=== PATIENT | female | born 1945 | race Caucasian/White ===

== ENCOUNTER 2019-12-13 17:21 | Inpatient (IN) | payer MEDICARE, SELFPAY ==
[2019-12-15 04:53] VITALS: BMI 17.5
[2019-12-16] VITALS: BP 133/75; PULSE 92; RESP 16; TEMP 37.1; O2SAT 98
[2019-12-16 04:00] VITALS: BP 149/92; PULSE 92; RESP 18; TEMP 37.2; O2SAT 92
[2019-12-16] MEDS: KCl 20 mEq in 5% Dex/0.45% Sod 20 MEQ/1,000 ML IV.SOLN 100 MEQ IVCONT (04:20)
[2019-12-16 08:00] VITALS: BP 149/82; PULSE 91; RESP 19; TEMP 36.2; O2SAT 98
[2019-12-16 10:29] LABS: Vancomycin Trough < 3.0 mcg/mL (10.0-20.0)
[2019-12-16] MEDS: vancomycin HCL 500 MG in 0.9 % Sodium Chloride 100 ML 110 MG IV ×2 (10:59→23:54)
[2019-12-16] MEDS: Heparin Sodium,Porcine 5,000 UNIT/ML VIAL 5000 UNIT SUBCUT ×2 (11:02→23:58)
[2019-12-16 12:01] VITALS: BP 147/76; PULSE 99; RESP 19; TEMP 36.3; O2SAT 97
--- NOTE | 2019-12-16 12:19 | PM.IMPN ---
Subjective Subjective Date of Service: 12/16/19 Interval History: not talking Review of Systems Review of Systems: Yes Other (unable to review) Physical Exam Vital Signs and I&O and Narrative: Vital Signs and I&O: Vital Signs Temp 97.4 F 12/16/19 12:01 Pulse 99 12/16/19 12:01 Resp 19 12/16/19 12:01 BP 147/76 H 12/16/19 12:01 Pulse Ox 97 12/16/19 12:01 Intake & Output 12/15/19 12/16/19 12/16/19 18:59 06:59 18:59 Intake Total 100 / 100 885 / 885 Balance 100 / 100 885 / 885 Intake: Intake, Oral Shanon unt 100 / 100 Intake, IV Amoun t 885 / 885 vancomycin HCL 500 mg In 0.9 % 110 / 110 Sodium Chlorid e 100 ml @ 110 mls/hr IV Q24H [facility] Rx#: [id number] KCl 20 mEq in 5% Dex/0.45% Sod 775 / 775 20 meq In 1,00 0 ml @ 10 mls/hr IVCONT .Q24H S [facility] Rx#:[id number] Other: Urine Color Tea Body Mass Index 17.5 Const: General: comfortable Resp: Effort & Inspection: normal respiratory effort Cardio: Heart sounds: S1 normal heart sound present and S2 normal heart sound present Skin: Nails: other ( deep an extensive ulceration of the coccyx) Objective Data Current Medications Generic Name Dose Route Start Last Admin Trade Name Freq PRN Reason Stop Dose Admin Acetaminophen 650 mg 12/16/19 00:01 Acetaminophen 325 Mg Tablet PO Q6H PRN FEVER/PAIN,MILD (SCALE 1-3) Heparin Sodium (Porcine) 5,000 unit 12/16/19 11:00 12/16/19 11:02 Heparin Sodium,Porcine 5,000 Unit/Ml Vial SUBCUT 5,000 unit Q12H [facility] Administration Vancomycin HCl 500 mg/ Sodium 110 mls @ 110 mls/hr 12/16/19 09:00 12/16/19 12:04 Chloride IV Infused Q24H [facility] Infusion Cefepime HCl 1 gm/ Sodium 50 mls @ 100 mls/hr 12/16/19 17:00 Chloride IV Q24H [facility] Potassium Chloride/Dextrose/Sod Cl 20 meq in 1,000 mls @ 10 mls/hr 12/16/19 01:00 12/16/19 12:05 IVCONT 0 mls/hr .Q24H [facility] Infusion Morphine Sulfate 1 mg 12/16/19 00:01 Morphine Sulfate 2 Mg/Ml Cartridge IVPUSH Q4H PRN COMFORT Sodium Chloride 2 ml 12/16/19 00:01 12/16/19 11:02 0.9 % Sodium Chloride Flush 3 Ml Syringe IVFLUSH Not Given QSHIFT [facility] Labs CBC & Chem 7: 12/15/19 06:16 12/15/19 06:16 Labs: Laboratory Results - last 24 hr 12/13/19 12/13/19 12/13/19 10:38 10:58 10:58 MCV MCH MCHC RDW Coeff of Ivory Plt Count MPV Absolute Nucleated RBC Nucleated RBC % (auto) Band Neutrophils % Lymphocytes % Platelet Estimate RBC Morphology Hold Blue Top Bicarbonate 23 Anion Gap 20 Estimated Creat Clear 25.0 Est GFR (Non-Af Amer) 43 POC Glucose 297 H Random Glucose 336 H D Fasting Glucose Lactic Acid Calcium Magnesium 1.7 Ferritin 630 H Total Bilirubin 0.3 Direct Bilirubin < 0.2 AST 10 ALT 12 Alkaline Phosphatase 95 D Ammonia 33 Lactate Dehydrogenase 222 H Troponin I High Sens C-Reactive Protein 9.64 H B-Natriuretic Peptide Total Protein 7.4 Albumin 3.2 L Procalcitonin Urine Color Urine Appearance Urine pH Ur Specific [place] Urine Protein Urine Glucose (UA) Urine Ketones Urine Blood Urine Nitrite Urine WBC (Auto) Vancomycin Trough Urine Opiates Screen Ur Barbiturates Screen Phencyclidine Screen Ur Amphetamines Screen U Benzodiazepines Scrn Urine Cocaine Screen U Cannabinoids Screen Ethyl Alcohol Acetone, Qual NEGATIVE Coronavirus (PCR) 12/13/19 12/13/19 12/13/19 10:58 10:58 10:58 MCV 91.1 MCH 28.0 MCHC 30.7 L RDW Coeff of Ivory 14.5 Plt Count 249 D MPV 10.3 Absolute Nucleated RBC 0.000 Nucleated RBC % (auto) 0.0 Band Neutrophils % 6 H Lymphocytes % 6 L Platelet Estimate NORMAL RBC Morphology NORMAL Hold Blue Top Bicarbonate Anion Gap Estimated Creat Clear Est GFR (Non-Af Amer) POC Glucose Random Glucose Fasting Glucose Lactic Acid 6.8 H* Calcium Magnesium Ferritin Total Bilirubin Direct Bilirubin AST ALT Alkaline Phosphatase Ammonia Lactate Dehydrogenase Troponin I High Sens C-Reactive Protein B-Natriuretic Peptide Total Protein Albumin Procalcitonin Urine Color Urine Appearance Urine pH Ur Specific [place] Urine Protein Urine Glucose (UA) Urine Ketones Urine Blood Urine Nitrite Urine WBC (Auto) Vancomycin Trough Urine Opiates Screen Ur Barbiturates Screen Phencyclidine Screen Ur Amphetamines Screen U Benzodiazepines Scrn Urine Cocaine Screen U Cannabinoids Screen Ethyl Alcohol Cancelled Acetone, Qual Coronavirus (PCR) 12/13/19 12/13/19 12/13/19 10:58 10:58 10:58 MCV MCH MCHC RDW Coeff of Ivory Plt Count MPV Absolute Nucleated RBC Nucleated RBC % (auto) Band Neutrophils % Lymphocytes % Platelet Estimate RBC Morphology Hold Blue Top SEE NOTE Bicarbonate Anion Gap Estimated Creat Clear Est GFR (Non-Af Amer) POC Glucose Random Glucose Fasting Glucose Lactic Acid Calcium Magnesium Ferritin Total Bilirubin Direct Bilirubin AST ALT Alkaline Phosphatase Ammonia Lactate Dehydrogenase Troponin I High Sens C-Reactive Protein B-Natriuretic Peptide Total Protein Albumin Procalcitonin Urine Color YELLOW Urine Appearance CLEAR Urine pH 5.5 Ur Specific [place] 1.025 Urine Protein TRACE Urine Glucose (UA) 500 H Urine Ketones 5 Urine Blood NEG Urine Nitrite NEG Urine WBC (Auto) NEG Vancomycin Trough Urine Opiates Screen NOT DETECTED Ur Barbiturates Screen NOT DETECTED Phencyclidine Screen NOT DETECTED Ur Amphetamines Screen NOT DETECTED U Benzodiazepines Scrn NOT DETECTED Urine Cocaine Screen NOT DETECTED U Cannabinoids Screen NOT DETECTED Ethyl Alcohol Acetone, Qual Coronavirus (PCR) 12/13/19 12/13/19 12/13/19 10:58 11:32 12:21 MCV MCH MCHC RDW Coeff of Ivory Plt Count MPV Absolute Nucleated RBC Nucleated RBC % (auto) Band Neutrophils % Lymphocytes % Platelet Estimate RBC Morphology Hold Blue Top Bicarbonate Anion Gap Estimated Creat Clear Est GFR (Non-Af Amer) POC Glucose Random Glucose Fasting Glucose Lactic Acid Cancelled Calcium Magnesium Ferritin Total Bilirubin Direct Bilirubin AST ALT Alkaline Phosphatase Ammonia Lactate Dehydrogenase Troponin I High Sens 27.0 H D C-Reactive Protein B-Natriuretic Peptide 40 Total Protein Albumin Procalcitonin 0.89 Urine Color Urine Appearance Urine pH Ur Specific [place] Urine Protein Urine Glucose (UA) Urine Ketones Urine Blood Urine Nitrite Urine WBC (Auto) Vancomycin Trough Urine Opiates Screen Ur Barbiturates Screen Phencyclidine Screen Ur Amphetamines Screen U Benzodiazepines Scrn Urine Cocaine Screen U Cannabinoids Screen Ethyl Alcohol Acetone, Qual Coronavirus (PCR) 12/13/19 12/13/19 12/13/19 12:24 13:24 13:24 MCV MCH MCHC RDW Coeff of Ivory Plt Count MPV Absolute Nucleated RBC Nucleated RBC % (auto) Band Neutrophils % Lymphocytes % Platelet Estimate RBC Morphology Hold Blue Top Bicarbonate Anion Gap Estimated Creat Clear Est GFR (Non-Af Amer) POC Glucose Random Glucose Fasting Glucose Lactic Acid 4.2 H* Calcium Magnesium Ferritin Total Bilirubin Direct Bilirubin AST ALT Alkaline Phosphatase Ammonia Lactate Dehydrogenase Troponin I High Sens 24.6 H C-Reactive Protein B-Natriuretic Peptide Total Protein Albumin Procalcitonin Urine Color Urine Appearance Urine pH Ur Specific [place] Urine Protein Urine Glucose (UA) Urine Ketones Urine Blood Urine Nitrite Urine WBC (Auto) Vancomycin Trough Urine Opiates Screen Ur Barbiturates Screen Phencyclidine Screen Ur Amphetamines Screen U Benzodiazepines Scrn Urine Cocaine Screen U Cannabinoids Screen Ethyl Alcohol Acetone, Qual Coronavirus (PCR) Not Detected 12/13/19 12/14/19 12/15/19 15:48 18:04 06:16 MCV MCH MCHC RDW Coeff of Ivory Plt Count MPV Absolute Nucleated RBC Nucleated RBC % (auto) Band Neutrophils % Lymphocytes % Platelet Estimate RBC Morphology Hold Blue Top Bicarbonate 24 Anion Gap 15 Estimated Creat Clear 59.3 Est GFR (Non-Af Amer) > 60 POC Glucose Random Glucose Fasting Glucose 285 H D Lactic Acid 1.8 Calcium 7.4 L Magnesium Ferritin Total Bilirubin Direct Bilirubin AST ALT Alkaline Phosphatase Ammonia Lactate Dehydrogenase Troponin I High Sens C-Reactive Protein B-Natriuretic Peptide Total Protein Albumin Procalcitonin Urine Color Urine Appearance Urine pH Ur Specific [place] Urine Protein Urine Glucose (UA) Urine Ketones Urine Blood Urine Nitrite Urine WBC (Auto) Vancomycin Trough Urine Opiates Screen Ur Barbiturates Screen Phencyclidine Screen Ur Amphetamines Screen U Benzodiazepines Scrn Urine Cocaine Screen U Cannabinoids Screen Ethyl Alcohol Acetone, Qual Coronavirus (PCR) NEGATIVE 12/15/19 12/16/19 06:16 09:28 MCV 91.2 MCH 29.1 MCHC 31.9 RDW Coeff of Ivory 14.2 Plt Count 192 MPV 11.0 Absolute Nucleated RBC 0.000 Nucleated RBC % (auto) 0.0 Band Neutrophils % Lymphocytes % Platelet Estimate RBC Morphology Hold Blue Top Bicarbonate Anion Gap Estimated Creat Clear Est GFR (Non-Af Amer) POC Glucose Random Glucose Fasting Glucose Lactic Acid Calcium Magnesium Ferritin Total Bilirubin Direct Bilirubin AST ALT Alkaline Phosphatase Ammonia Lactate Dehydrogenase Troponin I High Sens C-Reactive Protein B-Natriuretic Peptide Total Protein Albumin Procalcitonin Urine Color Urine Appearance Urine pH Ur Specific [place] Urine Protein Urine Glucose (UA) Urine Ketones Urine Blood Urine Nitrite Urine WBC (Auto) Vancomycin Trough < 3.0 L Urine Opiates Screen Ur Barbiturates Screen Phencyclidine Screen Ur Amphetamines Screen U Benzodiazepines Scrn Urine Cocaine Screen U Cannabinoids Screen Ethyl Alcohol Acetone, Qual Coronavirus (PCR) Progress Note: A&P (1) Severe sepsis: Status: Acute (2) Decubitus ulcer: Status: Acute (3) Bacteremia: Status: Acute (4) Toxic metabolic encephalopathy: Status: Acute Assessment and Plan: this is a 74-year-old female with advanced dementia who comes from residential facility due to severe sepsis secondary to osteomyelitis of the coccyx 1. severe sepsis / osteo /Bacteremia Continue vancomycin and cefepime Granddaughter reports that she will be discussing with the family, undecided about transition to hospice/TECHNOLOGY SALES REPRESENTATIVE and antibiotics at this time cultures growing Gram-positive cocci in 1 bottle and gram-negative rods in the 2nd, await cultures to become finalized follow renal function and vancomycin trough 2. Toxic/ metabolic encephalopathy Multifactorial including above plus baseline dementia 3.Hypernatremia Check labs this morning Fluids to be adjusted as needed 4. hypokalemia Repleted yesterday, await labs this morning discussed with the granddaughter, healthcare proxy and had telephone today. She is unable to decide whether she wants to transition and hospice or not. She request some time to discuss with other family members. Will follow-up with her
[2019-12-16 13:29] LABS: Anion Gap 13 (12-20); Blood Urea Nitrogen 9 mg/dL (9-16); Calcium 7.5 mg/dL (8.4-10.2); Carbon Dioxide 28 mmol/L (22-29); Chloride 104 mmol/L (96-108); Creatinine Clr Calc Pharmacy 52.2; Estimated Glomerular Filt Rate > 60; Glucose Random 465 mg/dL (60-115); Potassium 3.2 mmol/l (3.3-5.1); Sodium 142 mmol/L (135-145)
[2019-12-16 15:37] VITALS: BP 158/87; PULSE 89; RESP 20; TEMP 36.3; O2SAT 97
[2019-12-16 16:25] LABS: Glucose, Whole Blood 498 mg/dL (60-115)
[2019-12-16] MEDS: cefEPime HCl 1 GM in 0.9 % Sodium Chloride 50 ML IV (17:33)
[2019-12-16] MEDS: Insulin Lispro 100 UNIT/ML 3 ML VIAL SUBCUT (17:35)
[2019-12-16] MEDS: 0.9 % Sodium Chloride Flush 3 ML SYRINGE 2 ML IVFLUSH (17:35)
[2019-12-16 19:34] VITALS: BP 124/66; PULSE 114; RESP 19; TEMP 36.9; O2SAT 98
[2019-12-16 20:43] LABS: Glucose, Whole Blood 287 mg/dL (60-115)
[2019-12-17] VITALS (8 sets, daily range): BP systolic 100–145; BP diastolic 62–84; PULSE 66–114; RESP 16–20; TEMP 35.9–36.9; O2SAT 97–98
[2019-12-17 08:02] LABS: Glucose, Whole Blood 306 mg/dL (60-115)
--- NOTE | 2019-12-17 09:49 | MHC.CM.PN ---
CALL RECEIVED FROM MINH WILKINSON IS CURRENTLY AT A MEETING WITH HOME. PER CONVERSATION, MINH AND FAMILY WANT PATIENT TO REMAIN ON HOSPICE IF THEY CAN VISIT AT [facility]. MINH AWARE THAT THIS STAFF REPORTER WILL ATTEMPT TO GET THE ANSWER, AND CALL BACK AT 13:00 TODAY. PER CONVERSATION WITH [facility], FAMILY CAN BRING FOOD IN DAILY IF THEY LIKE. ALTHOUGH THERE IS A 14 DAY NO VISITOR POLICY, FACILITY IS FLEXIBLE WITH END OF LIFE CARE PATIENTS. INFORMATION WILL BE RELAYED AGAIN TO FAMILY.
[2019-12-17] MEDS: Heparin Sodium,Porcine 5,000 UNIT/ML VIAL 5000 UNIT SUBCUT (10:16)
[2019-12-17] MEDS: Insulin Lispro 100 UNIT/ML 3 ML VIAL SUBCUT ×3 (10:17→17:43)
[2019-12-17] MEDS: Cholecalciferol (Vitamin D3) 25 MCG TABLET PO (10:18)
[2019-12-17] MEDS: Cyanocobalamin (Vitamin B-12) 1,000 MCG TABLET 1000 MCG PO (10:18)
[2019-12-17] MEDS: Escitalopram Oxalate 10 MG TABLET PO (10:18)
--- NOTE | 2019-12-17 11:20 | MHC.CM.PN ---
PLAN IS FOR PATIENT TO RETURN HOME WITH NO SERVICES. RN AWARE OF PLAN.
[2019-12-17 12:02] LABS: Vancomycin Trough 4.5 mcg/mL (10.0-20.0)
[2019-12-17 12:10] LABS: Glucose, Whole Blood 369 mg/dL (60-115)
[2019-12-17 13:24] LABS: Glucose, Whole Blood 409 mg/dL (60-115)
[2019-12-17] MEDS: vancomycin HCL 500 MG in 0.9 % Sodium Chloride 100 ML 100 MG IV (13:30)
--- NOTE | 2019-12-17 13:36 | PM.CNGS ---
History of Present Illness Consult details Consult date: 12/17/19 Requesting physician: Jacinto Martin Narrative: 74-year-old female with diabetes hypertension and events dementia admitted to the hospital on December 13, 2019 for altered mental status. [facility] of 2019 because of worsening dementia. Most of the history is from the sister at bedside. Patient was noted to have onset of memory loss starting February of 2019. This slowly progressed and she was therefore transferred to the penitentiary starting September. She had progressive worsening of her dementia. She was admitted for a week for urinary tract infection in October 2019. Since then, her overall have has been worsening. She seems to have been mostly bedbound for the past few weeks. She was noted to have a small sacral ulcer in October but this has worsened over this past several weeks. When she was brought to the ED does December 12, she was noted to be septic. She had a large necrotic sacral decubitus ulcer and her CAT scan showed osteomyelitis of the coccyx as well as the S5. Her healthcare proxy, the granddaughter, had stated that she is not to have any surgical procedures including debridement. There has been worsening of the ulcers since she has been in the hospital with foul smell. I was therefore consulted. Review of Systems Review of Systems: Yes Unobtainable due to mental condition PMFSH Past Medical History Medical History Dementia Diabetes mellitus GERD with apnea Hypertension Cognitive capacity: patient has advanced dementia, bedbound Social History Social History Advance Directives: No Advance Directives Information Provided: No service: No Current occupational status: unemployed Meds Allergies Allergy/AdvReac Type Severity Reaction Status Date / Time No Known Allergies Allergy Verified 12/15/19 04:57 Home Medications Medication Instructions Recorded Confirmed Type acetaminophen 650 mg PO Q6H PRN 12/15/19 12/15/19 History [id number] 1 ea PO TID 12/15/19 12/15/19 History [Alfredo (with collagen)] cholecalciferol (vitamin D3) 25 mcg PO DAILY 12/15/19 12/15/19 History cyanocobalamin (vitamin B-12) 1,000 mcg PO DAILY 12/15/19 12/15/19 History dulaglutide 0.75 mg SUBCUT WE@89912/15/19 12/15/19 History escitalopram oxalate 10 mg PO DAILY 12/15/19 12/15/19 History insulin lispro 1 sliding scale dose SUBCUT TIDAC 12/15/19 12/15/19 History metformin 1,000 mg PO BID 12/15/19 12/15/19 History nut.tx.gluc.intol,lac-free,soy 237 PO TID 12/15/19 History [Glucerna] omeprazole magnesium 20 mg PO DAILY@0630 12/15/19 12/15/19 History oxycodone 2.5 mg PO Q4H PRN 12/15/19 12/15/19 History Physical Exam Vital Signs and I&O and Narrative: Vital Signs and I&O: Vital Signs Temp 97.9 F 12/17/19 12:00 Pulse 114 H 12/17/19 12:00 Resp 19 12/17/19 12:00 BP 123/62 12/17/19 12:00 Pulse Ox 97 12/17/19 12:00 Intake & Output 12/16/19 12/17/19 12/17/19 18:59 06:59 18:59 Intake Total 1005 / 1165 160 / 1165 Output Total 500 / 700 200 / 700 Balance 505 / 465 -40 / 465 Urine Output (Aver age ml/kg/hr) 1.06 0.42 0.42 Intake: Intake, Oral [place] unt 120 / 120 0 / 120 Intake, Oral Sup plement Amount 0 / 0 Intake, Tube Fee ding Amount 0 / 0 Intake, IV Amoun t 885 / 1045 160 / 1045 cefEPime HCl 1 gm In 0.9 % 50 / 50 Sodium Chlorid e 50 ml @ 100 mls /hr IV Q24H SC H Rx#:[id number] vancomycin HCL 500 mg In 0.9 % 110 / 220 110 / 220 Sodium Chlorid e 100 ml @ 110 mls/hr IV Q12H [facility] Rx#: [id number] KCl 20 mEq in 5% Dex/0.45% Sod 775 / 775 0 / 775 20 meq In 1,00 0 ml @ 10 mls/hr IVCONT .Q24H S [facility] Rx#:[id number] Output: Output, Urine Am ount 500 / 700 200 / 700 Other: Meal Refused No Yes Yes NPO No No Breakfast % Eate n 25% 25% Lunch % Eaten 25% Dinner % Eaten 0% Number of Incont inent Voids 2 Number of Incont inent Bowel 1 Movements Urine pure wick Urine Color Yellow Stool inc. Stool Color Dark Brown Stool Consistenc y Formed Body Mass Index 17.5 Const: Other: bedbound, not communicative, the cachectic, no verbal output Resp: Effort & Inspection: decreased respiratory effort Cardio: Rate: tachycardic GI: Palpation (GI): Soft to palpation Back/Spine/Pelvis: Other: large sacral decubitus ulcer, about 7.5 cm across by 7 cm, with necrotic areas, significant undermining, foul-smelling discharge, tenderness to touch Results Labs Result diagrams: 12/15/19 06:16 12/16/19 12:44 Labs: Abnormal lab results 12/16/19 12/16/19 12/17/19 Range/Units 15:58 20:39 07:51 POC Glucose 498 H* 287 H 306 H (60-115) mg/dL Vancomycin Trough (10.0-20.0) mcg/mL 12/17/19 12/17/19 12/17/19 Range/Units 11:02 11:48 13:16 POC Glucose 369 H* 409 H* (60-115) mg/dL Vancomycin Trough 4.5 L (10.0-20.0) mcg/mL Urine 12/13/19 Range/Units 10:58 Urine Color YELLOW Urine Appearance CLEAR Urine pH 5.5 (5.0 - 8.0) Ur Specific [place] 1.025 (1.005 - 1.025) Urine Protein TRACE (NEG - TRACE) Urine Glucose (UA) 500 H (NEG - ) MG/DL All other labs normal. Assessment and Plan (1) Decubitus ulcer: Qualifiers: Pressure injury location: sacral region Status: Acute 74-year-old female with advanced dementia, with note of a large sacral decubitus ulcer. This has some necrotic areas, undermining, as well as foul drainage. This seems to go through the bone. The CAT scan shows osteomyelitis of the coccyx as well as S5. Ideally, she should have aggressive operative debridement with anesthesia in the operating room. However, at this time she seems to be medically not fit to undergo such a procedure. Furthermore, her sister states that she is not to undergo any aggressive surgical intervention at all. The official healthcare proxy is a granddaughter, but the patient's sister who has been coming to the hospital frequently had stated that the have decided against any further aggressive measures. It appears that the already have agreed as the family that the patient should be on comfort measures only and that they are trying to arrange for hospice in a penitentiary. They also understand that at this time, antibiotics alone may not be of any benefit. In the meantime, I have changed her dressings and applied a fresh foam dressing. She still should be aggressively switch from one position to another. Her dressings should be changed daily as well. I have discussed above with the sister and the hospital staff. (2) Hypertension: Status: Acute (3) Dementia: Status: Acute (4) Diabetes mellitus: Status: Acute (5) GERD with apnea: Status: Acute
--- NOTE | 2019-12-17 14:31 | MHC.CM.PN ---
THIS APPLIANCE SERVICE SUPERVISOR HAD CONVERSATION WITH FAMILY MEMBER, MINH AND HCP/GRANDDAUGHTER MIGEL ([phone]) PLAN IS TO ACCEPT BED OFFER AT [facility] AND SIGN ON TO [facility] IS CURRENTLY ATTEMPTING AUTH. FAMILY AWARE THAT PATIENT COULD DISCHARGE TODAY, PENDING INSURANCE AUTHORIZATION FOR A BED OFFER.
--- NOTE | 2019-12-17 15:03 | P.DS_ITS ---
DS: Providers Provider Date of admission: 12/13/19 17:21 Primary care physician: Dario Kang MD Consults: 12/15/19 04:58 Consult to Infectious Diseases Routine Consulting Provider: Jacinto Martin Reason for consultation: severe osteomylitis Has provider been notified: Yes 12/15/19 05:11 Consult to Wound Care Provider Routine Consulting Provider: Ludy Esposito 12/17/19 12:21 Consult to General Surgery Routine Consulting Provider: Liang Rodriges Reason for consultation: Decub ulcer, assess for bed side debridment Has provider been notified: Yes DS: Diagnosis Discharge Diagnosis (1) Decubitus ulcer: Status: Acute (2) Hypertension: Status: Acute (3) Dementia: Status: Acute (4) Diabetes mellitus: Status: Acute (5) GERD with apnea: Status: Acute DS: Summary Hospital Course Hospital Course: HPI 73 year-old woman with DM2 and HTN, progressive and now advanced dementia coming from Nursing with altered mental status and essentially is septic with with extensive deep sacral ulcer with imaging confirming osteomylitis of the coccyx with possible abscess. She received Cefepime and Vancomycing. Surgery doesn't think she is suitable for surgery. Her grandaughter (Neelam) who is the healthcare proxy understand the gravity of the situation and is open to comfort care/paliative care and definately does not want surgical intervention but would like IV Abx overnight so she can update the rest of the family. She has also ruled out ICU admission and other invasive intervention. Hospital course: 74-year-old female with advanced dementia who comes from longterm facility due to severe se severe sepsis / osteomylitis /Bacteremia. She was treated with IV vancomycin and cefepime while awaiting the family to make definitive goal of plan. Surgery saw the patient and didn't think she would tolerate operation given the very extensive nature of the wound and overall poor health and rather recommended conservative management. Wound care also saw the patient and recommended conservative management with wet to dry dressing. I had multiple discussion with the family regarding goals of care and in the end they opted for hospce care with goal of care and they do understand that antibiotis either through IV or PO will mitigate the extend of the wound and therefore will not prescribe further antiboitics at this. I should note that the quality department will around of this patient's finding from the nursing and told me they will contact [facility] and this was communicated with the family to their satisfaction. Will prescribe Ativan, Morphine for purpose of comfort. Hospice to review the medications and made adjustment as needed Status at Discharge Cognitive/behavioral status at discharge: Confused from dementia Functional status at discharge: bed bound Time Spent with Patient Time attestation: Total time spent providing and/or coordinating discharge services: Time spent: Greater than 30 minutes Physical Exam Vital Signs and I&O and Narrative: Vital Signs and I&O: Vital Signs Temp 97.9 F 12/17/19 12:00 Pulse 114 H 12/17/19 12:00 Resp 19 12/17/19 12:00 BP 123/62 12/17/19 12:00 Pulse Ox 97 12/17/19 12:00 Body Mass Index 17.5 Const: Other: bedbound, not communicative, the cachectic, no verbal output General: comfortable Resp: Effort & Inspection: normal respiratory effort and decreased respiratory effort Cardio: Rate: tachycardic Heart sounds: S1 normal heart sound present and S2 normal heart sound present GI: Palpation (GI): Soft to palpation Back/Spine/Pelvis: Other: large sacral decubitus ulcer, about 7.5 cm across by 7 cm, with necrotic areas, significant undermining, foul-smelling discharge, tenderness to touch Skin: Nails: other ( deep an extensive ulceration of the coccyx) DS: Data Data Completed and Pending Labs on day of discharge: Labs from last 24 hours Discharge Plan Discharge Anticipated Discharge Date/Time: 12/17/19 14:16 Patient Disposition: Xfer SNF Referrals: Dario Kang MD [Primary Care Provider] - Discharge Medications: New morphine 20 mg/5 mL (4 mg/mL) solution 10 mg sublingual Q4H PRN (Reason: Pain and Dyspnea) Qty: 500 RF: 0 lorazepam [Ativan] 0.5 mg tablet 0.5 mg PO Q4H PRN (Reason: anxiety/agitation) Qty: 20 RF: 0 atropine 1 % drops 1 drp sublingual Q4-6H PRN (Reason: secretions) Qty: 15 RF: 0 Continued cyanocobalamin (vitamin B-12) 1,000 mcg Tablet 1,000 mcg PO DAILY RF: 0 acetaminophen 650 mg Tablet 650 mg PO Q6H PRN (Reason: FEVER, PAIN, MILD (1-3)) RF: 0 metformin 1,000 mg Tablet 1,000 mg PO BID RF: 0 insulin lispro 100 unit/mL Solution 1 sliding scale dose SUBCUT TIDAC RF: 0 Glucerna Liquid 237 PO TID RF: 0 cholecalciferol (vitamin D3) 25 mcg (1,000 unit) Tablet 25 mcg PO DAILY RF: 0 omeprazole magnesium 20 mg Capsule,Delayed Release(Dr/Ec) 20 mg PO DAILY@0630 RF: 0 dulaglutide 0.75 mg/0.5 mL Pen Injector 0.75 mg SUBCUT WE@0900 RF: 0 Alfredo (with collagen) 7-7-1.5 gram Powder In Packet 1 ea PO TID RF: 0 Discontinued oxycodone 5 mg Tablet 2.5 mg PO Q4H PRN (Reason: Pain (Scale Score 1-3)) RF: 0 escitalopram oxalate 10 mg Tablet 10 mg PO DAILY RF: 0 Discharge Orders: Discharge Order (Routine); Ordered 12/17/19 Ordered By: Jacinto Martin Diet: advance to your usual diet Activity on Discharge: Rest with bed elevated Visit Report Forms: Patient Portal Discharge page Care Plan Goals: Comfort measure/Hospice Health Concerns: Sepsis, severe due coccyx osteomylitis and coccyx wound Plan of Treatment: Comfort measure, hospice
--- NOTE | 2019-12-17 15:35 | MHC.CM.PN ---
PATIENT IS DISCHARGED TO [facility] FOR 18:00 [facility]IA [facility]. FAMILY MEMBERS MINH AND HCP/MIGEL AWARE OF PLAN. FAMILY WILL BE IN AT 16:30 TO FEED PATIENT. UNIT AND RN AWARE OF PLAN.
[2019-12-17] MEDS: 0.9 % Sodium Chloride Flush 3 ML SYRINGE 2 ML IVFLUSH ×2 (16:23)
--- NOTE | 2019-12-17 16:45 | MHC.INPTTRAN ---
patient drowsy,appears comfortable.lg dsg on coccyx changed today by .
[2019-12-17 17:33] LABS: Glucose, Whole Blood 229 mg/dL (60-115)
--- NOTE | 2020-02-22 23:56 | CONS_ITS ---
DATE OF SERVICE: 12/15/2019 HISTORY OF PRESENT ILLNESS: Thank you for allowing me to see this pleasant patient. I am seeing her for sacral ulcer, extensive. She presents to the hospital, found to have increased mental status changes and concerns about discomfort in sacral area. The patient has no fever, chills, nausea, vomiting, or diarrhea. She is not able to express herself due to dementia. PAST MEDICAL HISTORY: Diabetes mellitus, hypertension, and dementia. MEDICATIONS: Include cefepime, vancomycin, Tylenol, metformin, Lispro. ALLERGIES: NO ANTIBIOTIC ALLERGIES. SOCIAL HISTORY: No smoking, alcohol, or HIV risk. FAMILY HISTORY: Not pertinent. REVIEW OF SYSTEMS: Unable. The patient is demented. PHYSICAL EXAMINATION: VITAL SIGNS: The patient is afebrile. Vital signs stable. HEENT: Pupils equally round and reactive to light and accommodation. Oropharynx clear. LUNGS: Clear. HEART: Regular rate and rhythm. ABDOMEN: Soft and nontender. EXTREMITIES: Deep stage IV sacral ulcer. NEURO: Confused. SKIN: Clear. LABORATORY DATA: Shows creatinine 1.3. White count is 8. There is evidence of sacral ulcer on exam. IMPRESSION: 1. Sacral ulcer, decubitus. The patient is poor risk for healing due to diabetes mellitus, dementia, gram-negative anaerobes may be possible. 2. Diabetes mellitus. 3. Allergies as listed. SUGGESTION: Continue cefepime and vancomycin. Determination of further care to be determined by family. The patient may end up being DIRECT[employer], not sure at this time. MD SURENDRA Callejas/ALBERTO / [id number]
== END 2019-12-17 18:34 | disposition skilled nursing facility (03) | DRG 871 ==
PROVIDERS: Family Medicine; Admitting Provider Internal Medicine; Emergency Provider Physician Assistant; PCP Family Medicine; Visit Provider Internal Medicine
DX: A41.9 Sepsis, unspecified organism (principal); L89.154 Pressure ulcer of sacral region, stage 4; G92 Toxic encephalopathy; E43 Unspecified severe protein-calorie malnutrition; Z68.1 Body mass index [BMI] 19.9 or less, adult; E87.0 Hyperosmolality and hypernatremia; M46.28 Osteomyelitis of vertebra, sacral and sacrococcygeal region; I10 Essential (primary) hypertension; E11.622 Type 2 diabetes mellitus with other skin ulcer; F03.90 Unspecified dementia, unspecified severity, without behavioral disturbance, psychotic disturbance, mood disturbance, and anxiety; K21.9 Gastro-esophageal reflux disease without esophagitis; E55.9 Vitamin D deficiency, unspecified; E87.6 Hypokalemia; R65.20 Severe sepsis without septic shock; E11.69 Type 2 diabetes mellitus with other specified complication; Z11.59 Encounter for screening for other viral diseases; Z79.4 Long term (current) use of insulin; Z79.891 Long term (current) use of opiate analgesic; Z79.899 Other long term (current) drug therapy; Z66 Do not resuscitate
CPT/HCPCS: 36415; 70450; 71045; 72193; 80048; 80051; 80076; 80202; 80307; 81003; 82009; 82140; 82565; 82728; 82947; 83605; 83615; 83735; 83880; 84145; 84484; 84520; 85007; 85027; 86140; 87040; 93005; 96361; 96374; 96375; 99285; J0692; J2270; J3370; Q9967; U0003